=== PATIENT | male | born 1955 | race Two or more races ===

== ENCOUNTER 2019-06-09 10:54 | Outpatient (CLI) | payer OTHER | END 2019-06-09 11:00 | disposition home or self-care (01) | LOC: LAB 10:54 | DX: R97.20 Elevated prostate specific antigen [PSA] (principal) ==

== ENCOUNTER 2019-07-08 07:27 | Outpatient (CLI) | payer OTHER | END 2019-07-08 13:17 | disposition home or self-care (01) | LOC: SONOGRAMA 07:27 | DX: R97.20 Elevated prostate specific antigen [PSA] (principal) ==

== ENCOUNTER 2019-07-19 07:25 | Outpatient (CLI) | payer OTHER | END 2019-07-19 08:00 | disposition home or self-care (01) | LOC: TOM 07:25 | DX: C61 Malignant neoplasm of prostate (principal) ==

== ENCOUNTER 2019-07-26 08:40 | Outpatient (CLI) | payer OTHER | END 2019-07-26 09:48 | disposition home or self-care (01) | LOC: NUCLEAR 08:40 | DX: C61 Malignant neoplasm of prostate (principal) | CPT/HCPCS: 78306; 78320; A9503 ==

== ENCOUNTER → 2019-08-26 | Outpatient (CLI) | payer OTHER ==
[~2019-08-26] MED LIST: INSULIN SYRING SUBCUTANEO; TOUJEO SOL300 UNIT/1
== END | disposition home or self-care (01) ==
LOC: NUCLEAR 07:00
DX: I20.9 Angina pectoris, unspecified (principal); R07.89 Other chest pain
CPT/HCPCS: 78452; 93017; A9500

== ENCOUNTER 2019-09-05 14:16 | Inpatient (IN) | payer OTHER ==
[~2019-09-05] VITALS: Ht 172.7 cm; Wt 59.0 kg
[2019-09-06] MEDS ORDERED: INSULIN SYRING SUBCUTANEO (09:54)
[2019-09-07] MEDS ORDERED: TOUJEO SOL300 UNIT/1 (08:01)
== END 2019-09-09 13:38 | disposition home or self-care (01) | DRG 708 ==
LOC: O/R 09-07 05:01 → SURH 09-07 05:01 → SURG 09-07 08:45 → SURH 09-07 13:20
PROVIDERS: ADMIT Urology
PROC: 0VT30ZZ Resection of Bilateral Seminal Vesicles, Open Approach (ICD-10-PCS; 2019-09-07)
PROC: 07BC0ZX Excision of Pelvis Lymphatic, Open Approach, Diagnostic (ICD-10-PCS; 2019-09-07)
PROC: 0VT00ZZ Resection of Prostate, Open Approach (ICD-10-PCS; principal; 2019-09-07 10:30)
DX: C61 Malignant neoplasm of prostate (principal); R97.21 Rising PSA following treatment for malignant neoplasm of prostate; N49.0 Inflammatory disorders of seminal vesicle; E11.9 Type 2 diabetes mellitus without complications; Z79.4 Long term (current) use of insulin

== ENCOUNTER 2020-05-10 13:43 | Outpatient (CLI) | payer OTHER | END 2020-05-10 13:54 | disposition home or self-care (01) | LOC: LAB 13:43 | PROVIDERS: ATTEND Urology | DX: C61 Malignant neoplasm of prostate (principal) ==

== ENCOUNTER 2020-05-31 10:31 | Outpatient (CLI) | payer OTHER | END 2020-05-31 10:43 | disposition home or self-care (01) | LOC: TOM 10:31 | PROVIDERS: ATTEND Urology | DX: C61 Malignant neoplasm of prostate (principal) ==

== ENCOUNTER 2020-06-07 08:43 | Outpatient (CLI) | payer OTHER | END 2020-06-07 09:05 | disposition home or self-care (01) | LOC: NUCLEAR 08:43 | PROVIDERS: ATTEND Urology | DX: C61 Malignant neoplasm of prostate (principal) | CPT/HCPCS: 78803; A9503 ==

== ENCOUNTER → 2021-05-14 11:28 | Outpatient (CLI) | payer OTHER | END | disposition home or self-care (01) | LOC: LAB 11:28 | PROVIDERS: ATTEND Urology | DX: C61 Malignant neoplasm of prostate (principal) ==